=== PATIENT | male | born 1980 | race Hispanic/Latino ===

== ENCOUNTER 2018-10-28 22:09 | Emergency (ER) | payer BC ==
[2018-10-28] MEDS ORDERED: Tdap Vaccine 0.5 ml Vial (10-64 yrs) IM ONE ×2 (22:17→23:01)
[2018-10-28] MEDS ORDERED: Bacitracin OINT 15GM TOP STA (22:17)
[2018-10-28] MEDS ORDERED: Insulin Regular 100 units/ml SC STA (22:47)
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
[2018-10-28] MEDS ORDERED: Bacitracin 500 Units/gm Oint Foilpak UD ONE (23:01)
[2018-10-28] MEDS ORDERED: Insulin Regular 100 units/ml ONE (23:01)
[2018-10-28] MEDS ORDERED: Sodium Chloride 0.9% 1,000 ML IV ONE (23:57)
--- NOTE | 2018-10-29 00:11 | ED PDOC ---
- ECG O2 Sat by Pulse Oximetry: 96 (RA) Medical Decision Making Medical Decision Making: Patient endorsed to me by CARMELLA Byrnes pending clinical sobriety and re-evaluation after fluids given. Repeat FS: 103. Head wound re-dressed as mild bleeding noted, no wound amenable to staple or repair found. Patient stable for d/c home. Disposition - Clinical Impression Clinical Impression: Hyperglycemia, Alcohol intoxication, Scalp hematoma, Head injury - POA Present On Arrival: Falls Or Trauma - Disposition Disposition: Routine/Home Disposition Time: 02:05 Condition: STABLE Additional Instructions: Follow up with your primary care doctor ARNULFO to start medications for your diabetes. Take Ibuprofen or Tylenol for pain. Return to ER if you have dizziness, vomiting or severe headache. Keep your wound dry for the next 24hrs and then remove dressing and wash gently with soap and water then leave open to the air thereafter. Instructions: Hyperglycemia, Adult (DC), Minor Head Injury (DC), Head Injury Observation (DC) Forms: [email or web address] ([place]) Print Language: NORTHERN IRISH
[2018-10-29 02:01] VITALS: BP 129/90; PULSE 110; RESP 18; TEMP 98
[2018-10-29 06:21] VITALS: O2SAT 96
--- NOTE | 2018-10-29 08:38 | CT ---
Date of service: 10/28/2018 PROCEDURE: CT HEAD WITHOUT CONTRAST. HISTORY: s/p fall, etoh COMPARISON: None available. TECHNIQUE: Axial computed tomography images were obtained through the head/brain without intravenous contrast. Radiation dose: Total exam DLP = 829.86 mGy-cm. This CT exam was performed using one or more of the following dose reduction techniques: Automated exposure control, adjustment of the mA and/or kV according to patient size, and/or use of iterative reconstruction technique. FINDINGS: HEMORRHAGE: No intracranial hemorrhage. BRAIN: No mass effect or edema. No atrophy or chronic microvascular ischemic changes. VENTRICLES: Unremarkable. No hydrocephalus. CALVARIUM: No fracture. Small scalp contusion at vertex.. PARANASAL SINUSES: Unremarkable as visualized. No significant inflammatory changes. MASTOID AIR CELLS: Unremarkable as visualized. No inflammatory changes. OTHER FINDINGS: None. IMPRESSION: No intracranial hemorrhage. Small scalp contusion at vertex. Otherwise unremarkable. The preliminary findings for this examination were reported by [facility] at 10:51 p.m. on 10/28/2018. There is concurrence of this report with the preliminary findings.
== END 2018-10-29 02:09 | disposition home or self-care (01) ==
LOC: H.ER 22:09
DX: F10.129 Alcohol abuse with intoxication, unspecified (principal); S00.03XA Contusion of scalp, initial encounter; S09.90XA Unspecified injury of head, initial encounter; W01.0XXA Fall on same level from slipping, tripping and stumbling without subsequent striking against object, initial encounter; Y92.89 Other specified places as the place of occurrence of the external cause; E11.65 Type 2 diabetes mellitus with hyperglycemia; Z79.4 Long term (current) use of insulin
CPT/HCPCS: 70450; 82948; 90471; 90715; 96360; 96372; 99285; G0480; J7040